=== PATIENT | female | born 1965 | race Caucasian/White ===

== ENCOUNTER 2021-10-01 11:32 | Emergency (ER) | payer BC, SELFPAY ==
[2021-10-01 12:39] LABS: UTC Strep Screen (Rapid) Negative (Negative)
--- NOTE | 2021-10-01 12:43 | HMH.EDUTC ---
[facility] [place] Disposition Clinical Impression: Viral syndrome Sinusitis Qualifiers: Sinusitis location: unspecified location Chronicity: acute Recurrence: non-recurrent Qualified Code(s): J01.90 - Acute sinusitis, unspecified Disposition: Home, Self-Care Condition on Discharge: Good Instructions: DI for Sinusitis, DI for Viral Syndrome Additional Instructions: Drink plenty of fluids. Take tylenol or ibuprofen for pain or fever. Take the medications as directed. Follow up with your regular doctor. GO TO THE ER FOR ANY WORSENING SYMPTOMS Quarantine until you know the results of your covid-19 test. If it is positive, the health department should call you and give you further instructions about your length of Quarantine and other things. Notify your school or workplace of your results and follow their instructions regarding return to work/school. Prescriptions: Ondansetron [Zofran 4mg ODT] 4 mg PO Q8HP PRN #20 tab PRN Reason: Nausea Transmission Status: Received by [id number] methylPREDNISolone [Medrol] 4 mg PO DIRECTED 6 Days #21 packet Transmission Status: Received by [id number] Azithromycin [Z-Donny 250mg Tab*] 250 mg PO UD DOSE PK #6 tab Transmission Status: Received by [id number] Referrals: Provider,Referral, MD [Primary Care Provider] - Forms: Work/School Release Time of Disposition: 13:42 Medical Decision Making - Medical Records Medical records reviewed: No: I reviewed the patient's medical records. - Hal Inquiry Pt receiving controlled substance: No Vital Signs: 10/01/21 13:30 10/01/21 13:58 Temperature 98.5 F 98.5 F Temperature Source Oral Pulse Rate 72 Pulse Rate [Left] 72 Respiratory Rate 18 18 Blood Pressure 155/84 H Blood Pressure [Right Arm] 155/84 H Blood Pressure Mean [Right Arm] 107 02 Sat by Pulse Oximetry 99 - Lab Data Lab results reviewed: Yes: I reviewed the patient's lab results. Lab Results 10/01/21 12:23: Strep Scn Rapid Clinic Negative 10/01/21 12:25: Chlamy pneumoniae PCR Not detected, Adenovirus (PCR) Not detected, B. pertussis DNA (PCR) Not detected, Coronavirus OC43 (PCR) Not detected, Coronavirus HKU1 (PCR) Not detected, Coronavirus 229E (PCR) Not detected, SARS-CoV-2 (PCR) Detected A, Coronavirus NL63 (PCR) Not detected, Human Metapneumovir PCR Not detected, Influenza A (H1) PCR Not detected, Influ A (H1N1/09) PCR Not detected, Influenza A (H3) PCR Not detected, Influenza Type A (PCR) Not detected, Influenza Type B (PCR) Not detected, M. pneumoniae (PCR) Not detected, Parainfluenza 1 (PCR) Not detected, Parainfluenza 2 (PCR) Not detected, Parainfluenza 3 (PCR) Not detected, Parainfluenza 4 (PCR) Not detected, RSV (PCR) Not detected, Entero/Rhino (PCR) Not detected 10/01/21 13:58: Influenza Type A Ag Negative, Influenza Type B Ag Negative Orders (Tests/Meds): ORDERS Category Date Time Status Covid-19 Nasal PCR ([facility]) Routine Lab 10/01/21 12:25 Stop Req Strep Screen Confirmation Routine Micro 10/01/21 12:23 Received [facility] [place] HPI - General Stated complaint: aches, nausea, runny nose Time Seen by Provider: 10/01/21 12:43 - History of Present Illness Provider Complaint: She c/o body aches, extreme fatigue, sinus congestion, sore throat, low grade fever, chills and body aches for the past 4 days. She has had a negative covid-19 test at her job yesterday. She has been fully vaccinated against covid-19. - Related Data Previous Rx's Medication Instructions Recorded Azithromycin [Z-Donny 250mg Tab*] 250 mg PO UD DOSE PK #6 tab 10/01/21 Ondansetron [Zofran 4mg ODT] 4 mg PO Q8HP PRN #20 tab 10/01/21 methylPREDNISolone [Medrol] 4 mg PO DIRECTED 6 Days #21 10/01/21 packet Allergies Allergy/AdvReac Type Severity Reaction Status Date / Time No Known Allergies Allergy Verified 10/01/21 13:36 [facility] History - Hepatitis A Screen Attestation statement:: This patient has been screened for
[2021-10-01 13:30] VITALS: BP 155/84; PULSE 72; RESP 18; TEMP 36.9; O2SAT 99; BMI 29.9
[2021-10-01 13:58] VITALS: BP 155/84; PULSE 72; RESP 18; TEMP 36.9
[2021-10-01 14:00] LABS: UTC Influenza A Antigen Negative (Negative); UTC Influenza B Antigen Negative (Negative)
[2021-10-01 14:04] LABS: Adenovirus,PCR Not Detected (NotDetected); Bordetella Pertussis Not Detected (NotDetected); Chlamydophila Pneumoniae, PCR Not Detected (NotDetected); Coronavirus 229E Not Detected (NotDetected); Coronavirus NL63 Not Detected (NotDetected); Coronavirus OC43 Not Detected (NotDetected); Coronovirus HKU1,PCR Not Detected (NotDetected); Human Metapneumovirus Not Detected (NotDetected); Influenza A, PCR Not Detected (NotDetected); Influenza AH1, 2009 Not Detected (NotDetected); Influenza AH1, PCR Not Detected (NotDetected); Influenza AH3,PCR Not Detected (NotDetected); Influenza B, PCR Not Detected (NotDetected); Mycoplasma Pneumoniae, PCR Not Detected (NotDetected); Parainfluenza 1, PCR Not Detected (NotDetected); Parainfluenza 2, PCR Not Detected (NotDetected); Parainfluenza 3, PCR Not Detected (NotDetected); Parainfluenza 4, PCR Not Detected (NotDetected); Respiratory Syncytial Virus Not Detected (NotDetected); Rhinovirus/Enterovirus Not Detected (NotDetected)
[2021-10-01 15:52] LABS: Coronavirus 19, PCR Detected (NotDetected)
--- NOTE | 2021-10-02 10:08 | PC.NURSE ---
notified pt of positive covid swab
--- NOTE | 2021-10-02 12:04 | PC.NURSE ---
notified pt of positive COVID results at this time
== END 2021-10-01 14:00 | disposition home or self-care (01) ==
PROVIDERS: Emergency Provider Nurse Practitioner Family
DX: U07.1 COVID-19 (principal); J01.90 Acute sinusitis, unspecified
CPT/HCPCS: 87581; 87632; 87798; 87804; 87880; 99203; C9803; G0463; U0003; U0005

== ENCOUNTER → 2023-08-17 12:00 | Outpatient (CLI) | payer OTHER, SELFPAY ==
[2023-08-17 19:23] LABS: Basophils % 0.4 % (0.1-2.0); Eosinophils # 0.3 K/mm3 (0.0-0.4); Eosinophils % 3.3 % (0.1-12.0); Hematocrit 37.3 % (37.0-47.0); Hemoglobin 12.2 g/dL (12.2-16.2); Lymphocytes # 3.2 K/mm3 (0.7-4.5); Lymphocytes % 31.7 % (10-50); Mean Corpuscular HGB Conc 32.8 g/dL (31.8-35.4); Mean Corpuscular Hemoglobin 30.5 pg (27.0-31.2); Mean Corpuscular Volume 92.8 fl (81-99); Mean Platelet Volume 9.8 fl (7.4-10.4); Monocytes # 0.7 K/mm3 (0.1-1.0); Neutrophils # 5.9 K/mm3 (1.8-7.8); Neutrophils % 57.7 % (37.0-80.0); Platelet Count 303 K/mm3 (142-424); Red Blood Count 4.02 M/mm3 (4.20-5.40); Red Cell Distribution Width 13.8 % (11.5-17.5); White Blood Count 10.2 K/mm3 (4.8-10.8)
[2023-08-17 19:30] LABS: Chloride 102 mmol/L (98-107); Potassium 4.8 mmoL/L (3.5-5.1); Sodium 138 mmol/L (136-145)
[2023-08-17 19:32] LABS: Alanine Aminotransferase 17 U/L (12-78); Aspartate Amino Transferase 26 U/L (14-36); Blood Urea Nitrogen 18 mg/dl (7-17); Estimated Glomerular Filt Rate 57 ml/min (>60); GFR (African American) 69 ML/MIN (>60)
[2023-08-17 19:33] LABS: Albumin Level 3.8 g/dl (3.5-5.0); Albumin/Globulin Ratio 1.1 (1.1-1.8); Alkaline Phosphatase 74 U/L (38-126); Anion Gap 11.8 mEq/L (5-15); Bilirubin,Total 0.3 mg/dl (0.2-1.3); Calcium 9.1 mg/dl (8.4-10.2); Carbon Dioxide 29 mmol/L (22.0-30.0); Chol/HDL Ratio 3.5 (1-3.5); Cholesterol 198 mg/dl (140-200); Globulin 3.4 g/dL (1.3-3.2); Glucose 121 mg/dl (74-100); HDL Cholesterol 57 mg/dl (40-60); Iron 67 ug/dL (37-170); Total Protein,Serum 7.2 g/dl (6.3-8.2); Triglycerides 106 mg/dl (30-150); VLDL Cholesterol 21 mg/dL (0-40)
[2023-08-17 19:52] LABS: 25-OH Vitamin D, Total 38.9 ng/mL (30-100); T4 (Thyroxine) 6.1 ug/dl (5.53-11.0)
[2023-08-17 19:57] LABS: Total Iron Binding Capacity 376 ug/dL (265-497)
[2023-08-17 19:58] LABS: Direct LDL Cholesterol 103.52 mg/dL (100-129)
[2023-08-17 20:06] LABS: Thyroid Stimulating Hormone 0.68 uIU/mL (0.465-4.68)
[2023-08-17 20:45] LABS: Hemoglobin A1C 6.7 % (4.0-6.0)
== END ==
PROVIDERS: PCP Emergency Medicine; Visit Provider Emergency Medicine
DX: E11.9 Type 2 diabetes mellitus without complications (principal); R71.8 Other abnormality of red blood cells; Z79.84 Long term (current) use of oral hypoglycemic drugs; E66.9 Obesity, unspecified; Z68.33 Body mass index [BMI] 33.0-33.9, adult; M06.9 Rheumatoid arthritis, unspecified; Z79.899 Other long term (current) drug therapy
CPT/HCPCS: 80053; 80061; 82043; 82306; 83036; 83540; 83550; 84436; 84443; 85025

== ENCOUNTER → 2023-09-15 07:07 | Outpatient (CLI) | payer OTHER, SELFPAY ==
[2023-09-15 19:34] LABS: Amphetamine/Metha Screen,Urine Negative ng/ml (<1000)
[2023-09-15 19:36] LABS: Barbiturates Screen,Urine Negative ng/ml (<200)
[2023-09-15 19:37] LABS: Benzodiazepines Screen,Urine Negative ng/ml (<200); Cannabinoid Screen,Urine Positive ng/ml (<50)
[2023-09-15 19:38] LABS: Cocaine Screen,Urine Negative ng/ml (<300)
[2023-09-15 19:39] LABS: Methadone Screen,Urine Negative ng/ml (<300); Opiate Screen,Urine Positive ng/ml (<300)
[2023-09-15 19:40] LABS: Phencyclidine Screen,Urine Negative ng/ml (<25)
== END ==
PROVIDERS: PCP Emergency Medicine; Visit Provider Emergency Medicine
DX: M79.2 Neuralgia and neuritis, unspecified (principal)
CPT/HCPCS: 80305

== ENCOUNTER 2023-11-05 12:43 | Outpatient (CLI) | payer OTHER, SELFPAY ==
--- NOTE | 2023-11-05 12:46 | MM_ITS ---
PROCEDURE INFORMATION: Exam: Bilateral Screening 3D Mammography Exam date and time: 11/05/2023 12:58 PM Age: 57 years old Clinical indication: Screening. No family history of breast cancer. TECHNIQUE: Imaging protocol: Bilateral Screening tomosynthesis and 2D mammography including computer-aided detection (CAD) when performed.The technologist's notes document that best images possible were obtained to the patient's abilities. COMPARISON: No relevant prior studies available.If prior mammograms are provided, I am happy to add an addendum. FINDINGS: MAMMOGRAPHY: Breast composition: The breasts are almost entirely fatty. Mass: Three right breast masses: oval 1.7 cm mass at 12 o'clock, anterior 3rd, 4-5 cm from the nipple; oval 0.6 cm mass in the upper outer quadrant, middle 3rd, 8-9 cm from the nipple (MLO frame 25); and lobulated mass or 2 adjacent oval masses, 2.9 cm, in the inner upper quadrant, approximately 2-4 o'clock, posterior 3rd, 10-11 cm from the nipple. Architectural distortion: None. Calcifications: No suspicious calcifications. Asymmetric density: None. Skin thickening: None. Axillary adenopathy: None. IMPRESSION: Comparison to prior mammogram will be most helpful. If this is not provided within 2 weeks, patient will be recalled for right sonography for further evaluation of right breast masses. ASSESSMENT: BI-RADS Category 0: Incomplete- Need Additional Imaging Evaluation and/or Prior Mammograms for Comparison
== END 2023-11-05 23:59 ==
LOC: RAD 12:43
PROVIDERS: PCP Emergency Medicine; Visit Provider Obstetrics & Gynecology
DX: Z12.31 Encounter for screening mammogram for malignant neoplasm of breast (principal)
CPT/HCPCS: 77063; 77067

== ENCOUNTER 2023-11-13 19:02 | Outpatient (CLI) | payer OTHER, SELFPAY ==
[2023-11-13 20:07] LABS: Amphetamine/Metha Screen,Urine Negative ng/ml (<1000)
[2023-11-13 20:08] LABS: Barbiturates Screen,Urine Negative ng/ml (<200)
[2023-11-13 20:10] LABS: Benzodiazepines Screen,Urine Negative ng/ml (<200)
[2023-11-13 20:11] LABS: Cannabinoid Screen,Urine Positive ng/ml (<50); Cocaine Screen,Urine Negative ng/ml (<300)
[2023-11-13 20:12] LABS: Methadone Screen,Urine Negative ng/ml (<300)
[2023-11-13 20:13] LABS: Opiate Screen,Urine Positive ng/ml (<300); Phencyclidine Screen,Urine Negative ng/ml (<25)
== END 2023-11-13 23:59 ==
LOC: LAB.DROPOF 19:02
PROVIDERS: PCP Internal Medicine; Visit Provider Internal Medicine
DX: Z79.899 Other long term (current) drug therapy (principal)
CPT/HCPCS: 80307

== ENCOUNTER → 2023-12-18 12:51 | Outpatient (POV) | payer OTHER, SELFPAY ==
[2023-12-18 12:57] VITALS: BP 160/77; PULSE 72; RESP 18; O2SAT 96; BMI 35.0
--- NOTE | 2023-12-18 13:09 | A.OFFVIS_ITS ---
HPI Data of Consult Patient: new to practice Consult date: 12/18/23 Requesting Physician: Ana Nolan APRN Primary Care Provider: Quintin Infante DO Consult Narrative Reason for consult: Fibromyalgia, allover pain bilateral feet numbness/burning History of present illness: Ms. Espinal is a 58 year old female who presents today as a new patient. She is a referral from Stefano Perdomo's office. Today she rates her pain at a 6 out of 10. Patient states that she has pain all over including her knees hips bilateral feet due to neuropathy and other areas. Patient states that she has been diagnosed with fibromyalgia for years and that will occasionally have flareups. Patient does describe her pain as an aching, throbbing sensation with stinging and burning into her feet. Patient is a diabetic and states she is still trying to get her A1c within normal limits. She states that she is on Ozempic and her last A1c was around 7. Patient does state she also has a history of carpal tunnel surgery that was not quite a year ago and she still has pain around these areas in her wrist. Patient does states she has tried [id number] Tylenol and ibuprofen along with heat and ice and topicals throughout the years with minimal relief. She states the pain has progressively worsened over time and it frequently interferes with her ability perform activities of daily living such as cooking and cleaning. Patient states that she has a lot of difficulty sweeping and mopping. She does also state that she is planning on starting water aerobics once the weather warms up. Patient is currently prescribed Ramona 7.5 mg 4 times a day and gabapentin 800 mg 3 times a day from her primary care provider. Her Hal has been reviewed and is appropriate. CC: Ana Nolan APRN [facility] Disclaimer: The information contained in this section may have been updated after the patient was seen, as this information can be updated by other users. Medical History delivery delivered Diabetes Fibromyalgia Surgical History History of appendectomy History of cholecystectomy Family History Other Cancer Diabetes FHx: mental illness Heart attack Hyperlipidemia Hypertension Kidney disease Stroke Social History Smoking Status: Former smoker alcohol intake: former substance use type: marijuana current occupational status: unemployed Travel in the last 8 weeks: None household members: significant other housing: house marital status: education level: high school service: No Review of Systems Review of Systems Review of systems:: pertinent systems reviewed and negative unless documented below Review of systems (narrative): Review of Systems: General: No recent weight changes, no fever, no sleep disturbances Respiratory: No cough, no shortness of air, no recurring pulmonary infections Cardiovascular/peripheral vascular: No chest pain, no palpitations, no edema, no shortness of breath Gastrointestinal: No new onset incontinence, normal bowel movements reported Genitourinary: No new onset incontinence Musculoskeletal: Low back pain, hip pain, knee pain, bilateral feet pain Psychiatric: [Normal mood/affect] Neurological: [Denies weakness in extremities], [denies balance issues] Meds Home Medications and Allergies Home Medications Medication Instructions Recorded Confirmed Type cholecalciferol (vitamin D3) 50 50 mcg PO DAILY 08/17/23 12/18/23 History mcg (2,000 unit) capsule losartan 50 mg-hydrochlorothiazide 1 tab PO DAILY 08/17/23 12/18/23 History 12.5 mg tablet metformin 500 mg tablet 500 mg PO BID #60 tabs 08/18/23 12/18/23 Rx bupropion HCl 75 mg tablet 75 mg PO BID #60 tabs 09/15/23 12/18/23 Rx adalimumab 40 mg/0.4 mL See Rx Instructions SQ .COMPLEX 10/02/23 12/18/23 Rx subcutaneous pen kit (Humira(CF) Arthritis #2 ea Pen) cariprazine 1.5 mg capsule 1.5 mg PO DAILY #30 caps 11/18/23 12/18/23 Rx (Vraylar) gabapentin 800 mg tablet 800 mg PO TID #90 tabs 12/08/23 12/18/23 Rx semaglutide 0.25 mg or 0.5 mg (2 0.25 mg (0.368 mL) SQ WEEKLY #3 mL 12/08/23 12/18/23 Rx mg/3 mL) subcutaneous pen injector hydrocodone 7.5 mg-acetaminophen 1 tab PO QID Pain 12/18/23 12/18/23 History 325 mg tablet New Prescriptions to Start Prescriptions: Allergies Allergy/AdvReac Type Severity Reaction Status Date / Time No Known Allergies Allergy Verified 12/08/23 13:04 Objective Narrative: Physical Exam: General: Alert and oriented x3, no acute distress, pleasant and cooperative Lungs: Respirations even and unlabored, symmetrical chest expansion Eyes: PERRL Musculoskeletal: Flexion and extension of lumbar [spine] somewhat guarded secondary to pain, [antalgic gait noted] Neurological: Speech clear, no gross sensory deficit Assessment and Plan *Assessment and plan (1) Diabetic peripheral neuropathy: Problem Comment: Gabapentin helps tremendously for this. Will refill it obviously. Status: Acute Category: Medical Code(s): E11.42 - Type 2 diabetes mellitus with diabetic polyneuropathy (2) Fibromyalgia: Problem Comment: This is really not this patient's is most pressing complaint. She does have rheumatoid arthritis and has quite a bit of joint pain. Patient is taking cathi pentin and this does help with the fibromyalgia but especially helps with her diabetic peripheral polyneuropathy. Status: Acute Category: Medical Code(s): M79.7 - Fibromyalgia (3) Low back pain: Status: Acute Qualifiers: Chronicity: chronic Back pain laterality: bilateral Sciatica presence: without sciatica Qualified Code(s): M54.50 - Low back pain, unspecified; G89.29 - Other chronic pain Category: Medical Code(s): M54.50 - Low back pain, unspecified (4) Bilateral hip pain: Status: Acute Category: Medical Code(s): M25.551 - Pain in right hip; M25.552 - Pain in left hip (5) Bilateral knee pain: Status: Acute Qualifiers: Chronicity: chronic Qualified Code(s): M25.561 - Pain in right knee; M2 5.562 - Pain in left knee; G89.29 - Other chronic pain Category: Medical Code(s): M25.561 - Pain in right knee; M25.562 - Pain in left knee Plan Patient is experiencing significant pain in multiple locations due to her fibromyalgia and diabetic peripheral neuropathy. I have discussed with the patient that I will order a compounded cream. Patient has also been counseled in future she may benefit from injection therapy during times of flareup. I have also discussed with the patient long-term she may have better relief with a spinal cord stimulator trial. Risk and benefits and educational handouts were given at today's visit and we will follow-up with this at future visits. I have also counseled the patient regarding medication such as Cymbalta and Lyrica that these have been found to help with fibromyalgia. I have discussed with the patient that it may be beneficial to discuss with her primary care doctor regarding his opinion of starting these medications. Patient does state that she had been on gabapentin for years and really does not feel like it provides significant relief. Patient will return to clinic in 2 weeks for reevaluation of symptoms and plan of care. Patient has been instructed to contact the clinic with any concerns before the next appointment. Dr. Lawrence has reviewed this note and agrees with this plan of care. This note was dictated using voice recognition software and make contain errors or omissions.
== END ==
LOC: SC.PAIN 12:52
PROVIDERS: PCP Internal Medicine; Visit Provider Nurse Practitioner Family
DX: E11.42 Type 2 diabetes mellitus with diabetic polyneuropathy (principal); M79.7 Fibromyalgia; M54.50 Low back pain, unspecified; G89.29 Other chronic pain; M25.551 Pain in right hip; M25.552 Pain in left hip; M25.561 Pain in right knee; M25.562 Pain in left knee
CPT/HCPCS: 99202; G0463

== ENCOUNTER 2023-12-31 14:53 | Outpatient (POV) | payer OTHER, SELFPAY ==
[2023-12-31 15:22] VITALS: BP 131/68; PULSE 82; RESP 20; O2SAT 97; BMI 34.3
--- NOTE | 2023-12-31 15:36 | EXP.PAIN.SOA ---
[facility] Pain Management SOAP Note Subjective:: Patient is a pleasant 58-year-old female who presents today for follow-up. We are currently treating the patient for diabetic peripheral neuropathy, fibromyalgia, bilateral hip pain, bilateral knee pain, feet pain. Today she rates her pain a 5 out of 10. Patient denies any new trauma or injury. From our last visit she was ordered compounded cream and she states this has significantly improved her pain symptoms. She states that she does still have her chronic aches and pains however that by adding the cream it does seem to significantly take the edge off and make it more manageable. Patient was also given at her last visit information regarding the spinal cord stimulator. She does state that she has looked over all the information and that she is interested in proceeding forward with this option. Patient has tried and failed conservative therapy such as oral medication, heat and ice, topicals, physical therapy in the past and continued at home stretching exercise. Patient does state that she has been experiencing more pain in and around her mid back where her bra is. She states that it is just an aching sensation that is worse in the mornings and is tender to touch. She states that this pain does interfere with her ability to perform activities of daily living such as cooking and cleaning. Patient is currently managed with Hunter 7.5 mg 4 times a day and gabapentin 800 mg 3 times a day from her primary care provider. Her Hal has been reviewed and is appropriate. Review of Systems: General: No recent weight changes, no fever, no sleep disturbances Respiratory: No cough, no shortness of air, no recurring pulmonary infections Cardiovascular/peripheral vascular: No chest pain, no palpitations, no edema, no shortness of breath Gastrointestinal: No new onset incontinence, normal bowel movements reported Genitourinary: No new onset incontinence Musculoskeletal: Bilateral hip pain, knee pain, feet pain, mid back pain Psychiatric: [Normal mood/affect] Neurological: [Denies weakness in extremities], [denies balance issues] Objective:: Physical Exam: General: Alert and oriented x3, no acute distress, pleasant and cooperative Lungs: Respirations even and unlabored, symmetrical chest expansion Eyes: PERRL Musculoskeletal: Flexion and extension of thoracic [spine] somewhat guarded secondary to pain, [antalgic gait noted] point tenderness along bilateral thoracic paraspinous muscles Neurological: Speech clear, no gross sensory deficit Assessment:: Diabetic peripheral neuropathy, fibromyalgia, bilateral hip pain, bilateral knee pain, feet pain, myofascial pain Plan:: Patient is experiencing pain in and around her mid back around her bra line with limited range of motion and point tenderness with palpation. I have discussed with the patient that she may benefit from trigger point injections along this area. Risk and benefits were discussed with patient and she would like to proceed forward with this plan of care. I have also reviewed back over the spinal cord stimulator trial and the patient would like to proceed forward with this plan of care. I will order the psychological evaluation and if she is deemed an appropriate candidate we will proceed forward with the trial at a later date. Patient will be scheduled for bilateral thoracic paraspinous trigger point injections. Patient has been instructed to contact the clinic with any concerns before the next appointment. Dr. Lawrence has reviewed this note and agrees with this plan of care. This note was dictated using voice recognition software and make contain errors or omissions. [facility] Disclaimer: The information contained in this section may have been updated after the patient was seen, as this information can be updated by other users. Medical History delivery delivered Diabetes Fibromyalgia Surgical History History of appendectomy History of cholecystectomy Family History Other Cancer Diabetes FHx: mental illness Heart attack Hyperlipidemia Hypertension Kidney disease Stroke Social History (Updated 12/18/23 @ 13:18 by Dorothy Garcia RN) Smoking Status: Former smoker alcohol intake: former substance use type: marijuana current occupational status: other Travel in the last 8 weeks: None household members: significant other housing: house marital status: education level: high school service: No
== END 2023-12-31 23:59 ==
LOC: SC.PAIN 14:54
PROVIDERS: PCP Internal Medicine; Visit Provider Nurse Practitioner Family
DX: E11.42 Type 2 diabetes mellitus with diabetic polyneuropathy (principal); M79.7 Fibromyalgia; M25.551 Pain in right hip; M25.552 Pain in left hip; M25.561 Pain in right knee; M25.562 Pain in left knee; M79.671 Pain in right foot; M79.672 Pain in left foot
CPT/HCPCS: 99212; G0463

== ENCOUNTER 2024-01-04 18:09 | Outpatient (CLI) | payer OTHER, SELFPAY ==
[2024-01-04 18:12] LABS: Chloride 102 mmol/L (98-107); Potassium 4.4 mmoL/L (3.5-5.1); Sodium 137 mmol/L (136-145)
[2024-01-04 18:14] LABS: Blood Urea Nitrogen 22 mg/dl (7-17); Estimated Glomerular Filt Rate 57 ml/min (>60); GFR (African American) 69 ML/MIN (>60)
[2024-01-04 18:15] LABS: Alanine Aminotransferase 26 U/L (12-78); Albumin Level 3.8 g/dl (3.5-5.0); Albumin/Globulin Ratio 1.2 (1.1-1.8); Alkaline Phosphatase 87 U/L (38-126); Anion Gap 6.4 mEq/L (5-15); Aspartate Amino Transferase 27 U/L (14-36); Bilirubin,Total 0.4 mg/dl (0.2-1.3); Carbon Dioxide 33 mmol/L (22.0-30.0); Globulin 3.2 g/dL (1.3-3.2); Glucose 127 mg/dl (74-100)
== END 2024-01-04 23:59 ==
LOC: LAB.DROPOF 18:10
PROVIDERS: PCP Internal Medicine; Visit Provider Internal Medicine
DX: E11.9 Type 2 diabetes mellitus without complications (principal); Z79.84 Long term (current) use of oral hypoglycemic drugs; Z79.85 Long-term (current) use of injectable non-insulin antidiabetic drugs
CPT/HCPCS: 80053

== ENCOUNTER 2024-01-26 11:32 | Day surgery (SDC) | payer OTHER, SELFPAY ==
[2024-01-26 11:44] VITALS: BP 135/66; PULSE 87; RESP 18; TEMP 36.4; O2SAT 99; BMI 33.5
[2024-01-26] MEDS: LIDOCAINE 1% 5ML PF VIAL 5 ML (11:55)
[2024-01-26] MEDS: methylPREDNISolone ACETATE 80MG/ML VIAL 80 MG (11:55)
[2024-01-26 11:56] VITALS: BP 139/68; PULSE 88; RESP 18; O2SAT 98; O2SAT 99
[2024-01-26] MEDS: BUPIVACAINE 0.25% 10ML INJ 25 MG IJ (11:56)
--- NOTE | 2024-01-26 12:00 | EXP.PAIN.PRO ---
Procedure Date: 01/26/24 Time: 11:50 Anesthesiologist:: Rafal Carreon CRNA Complications:: None Pre-procedure Diagnosis:: Myofascial pain bilateral thoracic paraspinous muscle Post-procedure Diagnosis:: Same. Indications for Procedure:: Patient is a very pleasant 58-year-old female comes our clinic today for bilateral trigger point injections thoracic paraspinous muscle. Patient describes the pain as constant, dull, sharp, stabbing. She has difficulty especially when waking and getting out of bed in the morning. She describes the pain as sharp in the early a.m. As the day goes on she reports some relief. However she rates her pain in the afternoon 05/11. Procedure Details:: Details of the procedure explained to the patient. The patient taken to procedure room placed in sitting position. The area over the thoracic spine was cleansed using chlorhexidine as a cleansing solution. Using a 25-gauge inch and a half needle 4 separate areas along the right thoracic paraspinous muscle including the rhomboid was injected with 2 cc. The same procedure was carried out over the left thoracic paraspinous muscle including the rhomboid. The solution used was a 12 cc solution containing 5 cc of 1% lidocaine +5 cc of 0.25% Marcaine and 40 mg of Depo-Medrol. Patient tolerated procedure without difficulty. There are no complications. Plan and Disposition:: Patient was discharged without incident.
[2024-01-26 12:01] VITALS: BP 137/73; PULSE 82; RESP 18; O2SAT 99
== END 2024-01-26 12:01 | disposition home or self-care (01) ==
PROVIDERS: PCP Internal Medicine; Visit Provider Nurse Anesthetist, Certified Registered
DX: M79.18 Myalgia, other site (principal)
CPT/HCPCS: 20552; J1040

== ENCOUNTER 2024-02-10 14:48 | Outpatient (POV) | payer OTHER, SELFPAY ==
[2024-02-10 15:01] VITALS: BP 144/89; PULSE 111; RESP 18; TEMP 36.6; O2SAT 96; BMI 33.5
--- NOTE | 2024-02-10 15:50 | A.OFFVIS_ITS ---
[facility] Pain Management SOAP Note Subjective:: Patient is a pleasant 58-year-old female who presents today for follow-up of bilateral trigger point injections of her thoracic paraspinous muscle on 01/26/2024. Today she rates her pain a 0 out of 10. Patient denies any new trauma or injury. She states she has had at least 45% improvement following these injections and feels like they are still providing additional relief. Patient does also continue to use her compounded cream with significant relief. Patient does state that she has her psychological evaluation scheduled the of this month. Patient states that she would like to still proceed forward with the spinal cord stimulator trial if she is found to be an appropriate candidate. Patient is currently managed with Adel and gabapentin from her primary care provider. Her Hal has been reviewed and is appropriate. Review of Systems: General: No recent weight changes, no fever, no sleep disturbances Respiratory: No cough, no shortness of air, no recurring pulmonary infections Cardiovascular/peripheral vascular: No chest pain, no palpitations, no edema, no shortness of breath Gastrointestinal: No new onset incontinence, normal bowel movements reported Genitourinary: No new onset incontinence Musculoskeletal: Hip pain, knee pain Psychiatric: [Normal mood/affect] Neurological: [Denies weakness in extremities], [denies balance issues] Objective:: Physical Exam: General: Alert and oriented x3, no acute distress, pleasant and cooperative Lungs: Respirations even and unlabored, symmetrical chest expansion Eyes: PERRL Musculoskeletal: Flexion and extension of lumbar [spine] somewhat guarded secondary to pain, [antalgic gait noted] Neurological: Speech clear, no gross sensory deficit Assessment:: Diabetic peripheral neuropathy, fibromyalgia, bilateral hip pain, bilateral knee pain, feet pain, myofascial pain Plan:: Patient has had significant improvement following her injection and does not require any additional injection therapy. We will follow-up with the patient after her psychological evaluation. Patient will return to clinic in 1 month for reevaluation of symptoms and plan of care. Patient has been instructed to contact the clinic with any concerns before the next appointment. Dr. Lawrence has reviewed this note and agrees with this plan of care. This note was dictated using voice recognition software and make contain errors or omissions. [facility] Disclaimer: The information contained in this section may have been updated after the patient was seen, as this information can be updated by other users. Medical History delivery delivered Diabetes Fibromyalgia Surgical History History of appendectomy History of cholecystectomy Family History Other Cancer Diabetes FHx: mental illness Heart attack Hyperlipidemia Hypertension Kidney disease Stroke Social History Smoking Status: Former smoker alcohol intake: former substance use type: marijuana current occupational status: employed Travel in the last 8 weeks: None household members: significant other housing: house marital status: education level: high school service: No
== END 2024-02-10 23:59 ==
LOC: SC.PAIN 14:48
PROVIDERS: PCP Internal Medicine; Visit Provider Nurse Practitioner Family
DX: E11.42 Type 2 diabetes mellitus with diabetic polyneuropathy (principal); M79.7 Fibromyalgia; M25.551 Pain in right hip; M25.552 Pain in left hip; M25.561 Pain in right knee; M25.562 Pain in left knee; M79.671 Pain in right foot; M79.672 Pain in left foot
CPT/HCPCS: 99212; G0463

== ENCOUNTER 2024-03-01 14:37 | Outpatient (CLI) | payer OTHER, SELFPAY ==
[2024-03-01 19:40] LABS: 25-OH Vitamin D, Total 61.4 ng/mL (30-100)
[2024-03-01 20:02] LABS: Hemoglobin A1C 6.7 % (4.0-6.0)
== END 2024-03-01 23:59 | disposition home or self-care (01) ==
LOC: LAB.DROPOF 03-02 14:54
PROVIDERS: PCP Internal Medicine; Visit Provider Internal Medicine
DX: E11.69 Type 2 diabetes mellitus with other specified complication (principal); E66.9 Obesity, unspecified; M79.7 Fibromyalgia; Z79.84 Long term (current) use of oral hypoglycemic drugs; Z68.33 Body mass index [BMI] 33.0-33.9, adult
CPT/HCPCS: 82306; 83036

== ENCOUNTER 2024-03-22 14:00 | Outpatient (CLI) | payer OTHER, SELFPAY ==
[2024-03-22 19:07] LABS: Basophils # 0.1 K/mm3 (0-0.2); Basophils % 0.9 % (0.1-2.0); Eosinophils # 0.4 K/mm3 (0.0-0.4); Eosinophils % 4.1 % (0.1-12.0); Hematocrit 39.8 % (37.0-47.0); Hemoglobin 12.4 g/dL (12.2-16.2); Lymphocytes # 2.2 K/mm3 (0.7-4.5); Lymphocytes % 21.2 % (10-50); Mean Corpuscular HGB Conc 31.2 g/dL (31.8-35.4); Mean Corpuscular Hemoglobin 29.4 pg (27.0-31.2); Mean Corpuscular Volume 94.4 fl (81-99); Mean Platelet Volume 9.2 fl (7.4-10.4); Monocytes # 0.8 K/mm3 (0.1-1.0); Monocytes % 7.1 % (1.7-9.3); Neutrophils % 66.7 % (37.0-80.0); Platelet Count 407 K/mm3 (142-424); Red Blood Count 4.22 M/mm3 (4.20-5.40); Red Cell Distribution Width 13.8 % (11.5-17.5); White Blood Count 10.6 K/mm3 (4.8-10.8)
[2024-03-22 19:19] LABS: Alanine Aminotransferase 22 U/L (12-78); Albumin Level 4.2 g/dl (3.5-5.0); Albumin/Globulin Ratio 1.2 (1.1-1.8); Alkaline Phosphatase 80 U/L (38-126); Anion Gap 14.8 mEq/L (5-15); Aspartate Amino Transferase 27 U/L (14-36); Bilirubin,Total 0.4 mg/dl (0.2-1.3); Blood Urea Nitrogen 16 mg/dl (7-17); Calcium 9.7 mg/dl (8.4-10.2); Carbon Dioxide 31 mmol/L (22.0-30.0); Chloride 99 mmol/L (98-107); Estimated Glomerular Filt Rate 57 ml/min (>60); GFR (African American) 69 ML/MIN (>60); Globulin 3.5 g/dL (1.3-3.2); Glucose 125 mg/dl (74-100); Potassium 4.8 mmoL/L (3.5-5.1); Sodium 140 mmol/L (136-145); Total Protein,Serum 7.7 g/dl (6.3-8.2)
[2024-03-22 20:45] LABS: Hemoglobin A1C 6.4 % (4.0-6.0)
== END 2024-03-22 23:59 | disposition home or self-care (01) ==
LOC: LAB.DROPOF 03-23 12:40
PROVIDERS: PCP Internal Medicine; Visit Provider Internal Medicine
DX: E11.69 Type 2 diabetes mellitus with other specified complication (principal); E66.9 Obesity, unspecified; R53.83 Other fatigue; Z68.34 Body mass index [BMI] 34.0-34.9, adult; Z79.84 Long term (current) use of oral hypoglycemic drugs
CPT/HCPCS: 80053; 83036; 85025

== ENCOUNTER 2024-06-21 19:08 | Outpatient (CLI) | payer OTHER, SELFPAY ==
[2024-06-21 20:32] LABS: Hemoglobin A1C 6.8 % (4.0-6.0)
[2024-06-21 20:49] LABS: Thyroid Stimulating Hormone 0.81 uIU/mL (0.465-4.68)
[2024-06-21 21:43] LABS: Vitamin B12 979 pg/mL (239-931)
== END 2024-06-21 23:59 | disposition home or self-care (01) ==
LOC: LAB 19:09
PROVIDERS: PCP Internal Medicine; Visit Provider Internal Medicine
DX: E11.69 Type 2 diabetes mellitus with other specified complication (principal); Z79.84 Long term (current) use of oral hypoglycemic drugs; Z79.85 Long-term (current) use of injectable non-insulin antidiabetic drugs; I10 Essential (primary) hypertension; Z87.891 Personal history of nicotine dependence; E66.9 Obesity, unspecified; Z68.33 Body mass index [BMI] 33.0-33.9, adult
CPT/HCPCS: 82607; 82746; 83036; 84443